=== PATIENT | female | born 1945 | race Caucasian/White ===

== ENCOUNTER 2024-09-07 08:04 | Outpatient (CLI) | payer MEDICARE, OTHER | END 2024-09-07 08:05 | disposition home or self-care (01) | LOC: CSHMRI 08:04 | PROVIDERS: ATTEND Nurse Practitioner Family | DX: M51.16 Intervertebral disc disorders with radiculopathy, lumbar region (principal); M48.061 Spinal stenosis, lumbar region without neurogenic claudication; M51.15 Intervertebral disc disorders with radiculopathy, thoracolumbar region; Z98.890 Other specified postprocedural states; M48.05 Spinal stenosis, thoracolumbar region; M47.26 Other spondylosis with radiculopathy, lumbar region | CPT/HCPCS: 72148 ==